=== PATIENT | female | born 1970 | race Caucasian/White ===

== ENCOUNTER → 2017-05-20 | Outpatient (CLI) | payer OTHER | LOC: FIMAGING 14:39 | PROVIDERS: ATTEND Nurse Practitioner Adult Health | DX: Z12.31 Encounter for screening mammogram for malignant neoplasm of breast (principal); Z80.3 Family history of malignant neoplasm of breast | CPT/HCPCS: G0202 ==

== ENCOUNTER 2017-12-11 12:48 | Emergency (ER) | payer OTHER ==
[2017-12-11 13:39] VITALS: TEMP 98.2
[2017-12-11 14:28] LABS: PLATELET COUNT 199 10^3/uL (150-400)
--- NOTE | 2017-12-11 14:33 | EDPHY ---
General Time Seen by Provider: 12/11/17 14:19 Narrative: CHIEF COMPLAINT: Chest pain HISTORY OF PRESENT ILLNESS: Patient complains of right-sided chest pain. This has been present for 4-5 days. It is moderate to severe at times. Stabbing type of pain. Worse with palpation, deep inspiration and coughing. Sometimes worse when walking sometimes better. Does not radiate. Associated with shortness of breath but no cough. She did have ongoing "respiratory problems" in September since returning from [place]. She has previous diagnosis of right-sided PE in 2013. This was treated with Xarelto and subsequently aspirin daily. She has known factor 5 Leiden. No control. No smoking. No other associated complaints or modifying factors. REVIEW OF SYSTEMS: Ten systems reviewed and are negative unless otherwise noted in the HPI PCP: PHILIPPE Cotto (Dr. Nath) SPECIALISTS: Dr. Marie PAST MEDICAL HISTORY: PE, MS, factor V PAST SURGICAL HISTORY: Tubal ligation SOCIAL HISTORY: Nonsmoker. No drug or alcohol use. Works as a teacher with [employer] FAMILY HISTORY: None contributory EXAMINATION General Appearance: Alert, no distress Head: normocephalic, atraumatic Eyes: Pupils equal and round, no conjunctival pallor or injection ENT, Mouth: Mucous membranes moist Neck: Normal inspection, supple, non-tender Respiratory: Lungs clear in left viveros. There is dry crackle in right base. no wheezing. no retractions or distress. Painful palpation of right anterior chest. Cardiovascular: Regular rate and rhythm. No murmur Gastrointestinal: Abdomen is soft and nontender Back: non-tender, no bony abnormalities Neurological: A&O, nonfocal, normal gait Skin: Warm and dry, no rash no petechiae or purpura Extremities: Nontender, no pedal edema Psychiatric: Mood and affect normal DIFFERENTIAL DIAGNOSES: Including but not limited to pleurisy, PE, pneumonia, pleural effusion, pericardial effusion, pneumonitis MDM: 2:20 p.m. Right-sided chest pain that is pleuritic in nature. It is mostly reproducible. However the patient is factor 5 positive with previous right-sided PE with similar complaints. Low clinical suspicion for PE but the patient is concerned and would like to proceed with CT scan of the chest. She does not want to have a D-dimer drawn. I discussed the risks and benefits of this and will proceed with CT angiography of the chest. EKG will be obtained. Laboratory studies are pending. Her vital signs are within normal limits. 3:00 p.m. Laboratory studies are all within normal limits including negative troponin. CT scan pending. 3:20 p.m. Notified by radiologist Dr. Yanez. No PE on CT scan of the chest. No acute finding otherwise. 3:35 p.m. I re-evaluated the patient. I updated her regarding the negative CT scan findings. I also discussed the negative laboratory studies. I discussed the high likelihood of pleurisy given her recent likely viral illnesses. We discussed short course of Aleve and prednisone. We discussed follow up with her established physician. We discussed ED precautions. She is comfortable with this plan I do feel she is stable for discharge home at this time. EKG interpretation: Dr. Napoles SUPERVISION: Patient was independently examined, but I discussed the case with my secondary supervising physician Dr. Napoles - History Smoking Status: Never smoked - Objective Vital Signs: Initial Vital Signs Temperature (C) 98.2 F 12/11/17 13:33 Heart Rate 78 12/11/17 13:33 Respiratory Rate 17 12/11/17 13:33 Blood Pressure 110/66 12/11/17 13:33 O2 Sat (%) 96 12/11/17 13:33 O2 Delivery Mode Room Air Allergies/Adverse Reactions: No Allergies [NKDA] Allergy (Verified 05/31/14 19:37) Home Medications: Medication Instructions Recorded Cholecalciferol (Vitamin D3) 2,000 unit PO Q2D 05/31/14 [Vitamin D3] Diazepam [Valium 10 MG (*)] 5 mg PO ONCE PRN 05/31/14 Dimethyl Fumarate [Tecfidera] 240 mg PO BID 05/31/14 Herbals/Supplements -Info Only 1 ea PO DAILY 05/31/14 Meperidine HCl [Demerol 50 mg (*)] 50 mg PO Q4 PRN 05/31/14 Multivitamins [Multivitamin (*)] 3 each PO DAILY 05/31/14 Moody-3S/Dha/Epa/Fish Oil [Fish 1 each PO DAILY 05/31/14 Oil 1,200 mg Softgel] Diazepam [Valium 5 MG (*)] 5 mg PO Q6 PRN #24 tab 06/03/14 Enoxaparin [Lovenox 80 MG (*)] 80 mg SC 0600,1800 #6 syr 06/03/14 Hydrocodone/APAP 5/325 [[place] 1 - 2 tab PO Q4 PRN #30 tab 06/03/14 5/325 (*)] Pantoprazole Sodium [Protonix 40mg 40 mg PO DAILY PRN #30 tab 06/03/14 (*)] Promethazine HCl [Phenergan 25mg 12.5 mg PO Q6 PRN #24 tab 06/03/14 (*)] Warfarin Sodium [Coumadin 5MG (*)] 5 mg PO DAILY16 #30 tab 06/03/14 predniSONE [Deltasone] 60 mg PO DAILY #15 tablet 12/11/17 Laboratory Results: Laboratory Results 12/11/17 14:10 12/11/17 14:10 12/11/17 12/11/17 12/11/17 14:10 14:10 14:10 WBC 9.73 10^3/uL H 10^3/uL (3.80-9.50) RBC 4.25 10^6/uL 10^6/uL (4.18-5.33) Hgb 13.8 g/dL g/dL (12.6-16.3) Hct 40.5 % % (38.0-47.0) MCV 95.3 fL fL (81.5-99.8) MCH 32.5 pg pg (27.9-34.1) MCHC 34.1 g/dL g/dL (32.4-36.7) RDW 12.3 % % (11.5-15.2) Plt Count 199 10^3/uL 10^3/uL (150-400) MPV 10.7 fL fL (8.7-11.7) Neut % (Auto) 81.7 % H % (39.3-74.2) Lymph % (Auto) 10.9 % L % (15.0-45.0) [place] % (Auto) 5.7 % % (4.5-13.0) Eos % (Auto) 0.9 % % (0.6-7.6) Baso % (Auto) 0.3 % % (0.3-1.7) Nucleat RBC Rel Count 0.0 % % (0.0-0.2) Absolute Neuts (auto) 7.95 10^3/uL H 10^3/uL (1.70-6.50) Absolute Lymphs (auto) 1.06 10^3/uL 10^3/uL (1.00-3.00) Absolute Monos (auto) 0.55 10^3/uL 10^3/uL (0.30-0.80) Absolute Eos (auto) 0.09 10^3/uL 10^3/uL (0.03-0.40) Absolute Basos (auto) 0.03 10^3/uL 10^3/uL (0.02-0.10) Absolute Nucleated RBC 0.00 10^3/uL 10^3/uL (0-0.01) Immature Gran % 0.5 % % (0.0-1.1) Immature Gran # 0.05 10^3/uL 10^3/uL (0.00-0.10) Sodium 141 mEq/L mEq/L (135-145) Potassium 3.9 mEq/L mEq/L (3.5-5.2) Chloride 106 mEq/L mEq/L (97-110) Carbon Dioxide 27 mEq/l mEq/l (22-31) Anion Gap 8 mEq/L mEq/L (8-16) BUN 14 mg/dL mg/dL (7-23) Creatinine 0.7 mg/dL mg/dL (0.6-1.0) Estimated GFR > 60 Glucose 95 mg/dL mg/dL (70-100) Calcium 9.7 mg/dL mg/dL (8.5-10.4) Troponin I < 0.012 ng/mL ng/mL (0.000-0.034) Beta HCG, Qual NEGATIVE Departure - Departure Disposition: Home, Routine, Self-Care Clinical Impression: Pleurisy without effusion, Acute chest pain Condition: Good Instructions: Chest Pain (ED), Pleurisy (ED) Additional Instructions: 1. Prednisone as prescribed 2. Aleve, 1-2 pills by mouth twice daily as needed 3. Contact her primary care provider for outpatient follow-up 4. ED precautions as discussed Referrals: Lashanda Cotto NP [Primary Care Provider] - As per Instructions Prescriptions: predniSONE [Deltasone] 60 mg PO DAILY #15 tablet
--- NOTE | 2017-12-11 14:38 | CPEKG ---
Heart Rate: 73 RR Interval: 822 P-R Interval: 184 QRSD Interval: 88 QT Interval: 396 QTC Interval: 437 P Jbphh: 71 QRS Jbphh: 79 T Wave Jbphh: 52 EKG Severity - NORMAL ECG - EKG Impression: SINUS RHYTHM Electronically Signed By: Randy Napoles 11-Dec-2017 14:58:31
[2017-12-11] MEDS ORDERED: IOPAMIDOL (ISOVUE 370) 100 ML BTL IV ONE (14:45)
[2017-12-11 15:51] VITALS: BP 106/66; PULSE 76; RESP 18; O2SAT 97
== END 2017-12-11 15:50 | disposition home or self-care (01) ==
DX: R09.1 Pleurisy (principal); R07.9 Chest pain, unspecified; Z79.01 Long term (current) use of anticoagulants
CPT/HCPCS: Q9967

== ENCOUNTER → 2018-02-12 | Outpatient (CLI) | payer OTHER | LOC: FIMAGING 17:42 | PROVIDERS: ATTEND Family Medicine | DX: I80.02 Phlebitis and thrombophlebitis of superficial vessels of left lower extremity (principal) ==

== ENCOUNTER → 2018-05-18 | Outpatient (CLI) | payer OTHER | LOC: FIMAGING 15:48 | PROVIDERS: ATTEND Nurse Practitioner Adult Health | DX: R92.2 Inconclusive mammogram (principal) ==

== ENCOUNTER → 2018-12-08 | Outpatient (CLI) | payer OTHER | LOC: FIMAGING 13:15 | PROVIDERS: ATTEND Nurse Practitioner Adult Health | DX: R92.8 Other abnormal and inconclusive findings on diagnostic imaging of breast (principal) ==